=== PATIENT | female | born 1975 | race African-American/Black ===

== ENCOUNTER 2016-11-23 13:48 | Emergency (ER) | payer OTHER ==
[~2016-11-23] VITALS: Ht 157.5 cm; Wt 95.7 kg
[~2016-11-23 13:48] MED LIST: ALLERCLEAR10 MG PO; APAP500 PO; CIPROFLOXACIN500 M1 PO; CLONIDINE0.1 PO; CYCLOSPORINE25 M1 PO; DEX4 GLUCOSE1 EACH PO; ESTROGEL50 GM TD; FLAGYL500 MG PO; FLEXERIL PO; GLUCOSE 40% GEL15 GM PO; HYDROCHLOROTHIA25 M2 PO; HYDROCODONE-AP1 EAC6 PO; IBUPROFEN 600600 M1 PO; LANOLIN56 GM TOP; LORTAB 5 MG/5001 TA1 PO; MOBIC7.5 MG PO; NABUMETONE 500500 M1 PO; NAPROSYN500 MG PO; NOHOMEMEDICATIONS; NORCO 5-325 TA1 EACH PO; PREDNISONE 10 M10 MG PO; ROBAXIN 750 MG750 M1 PO; VENLAFAXINE H37.5 MG PO; VITAMIN D1000 UNI1 PO; ZANTAC 150MG T150 M1; ZOFRAN ODT4 MG PO
[2016-11-23 13:49] VITALS: BP 139/92
[2016-11-23] MEDS ORDERED: LISINOPRIL10 MG PO (14:01)
[2016-11-23] MEDS ORDERED: ESTROVEN 155 M155 MG PO (14:02)
[2016-11-23] MEDS ORDERED: TUSSIONEX PENN473 ML PO (14:19)
== END 2016-11-23 14:44 | disposition home or self-care (01) ==
LOC: ER 13:48
DX: J02.9 Acute pharyngitis, unspecified (principal); J04.0 Acute laryngitis; Z90.710 Acquired absence of both cervix and uterus; Z91.040 Latex allergy status

== ENCOUNTER → 2018-12-21 | Outpatient (CLI) | payer OTHER ==
[~2018-12-21] MED LIST changes: +AMOXICILLIN500 M1 PO; +BIOTIN10000 MC1 PO; +ESTRADIOL 1 MG T1 M1 PO; +ESTROVEN 155 M155 MG PO; +LISINOPRIL10 MG PO; +TRAMADOL 50 MG50 MG PO; +TUSSIONEX PENN473 ML PO
== END ==
LOC: RAD 16:12
DX: M47.816 Spondylosis without myelopathy or radiculopathy, lumbar region (principal); M25.551 Pain in right hip

== ENCOUNTER → 2019-02-21 | Outpatient (CLI) | payer OTHER | LOC: MRI 10:55 | DX: M54.16 Radiculopathy, lumbar region (principal) ==

== ENCOUNTER 2019-10-29 23:37 | Emergency (ER) | payer OTHER ==
[~2019-10-29] VITALS: Ht 157.5 cm; Wt 85.3 kg
[2019-10-29] MEDS ORDERED: LIPITOR 20 MG T20 M1 PO (23:45)
[2019-10-29] MEDS ORDERED: HYDROCHLOROTHIA25 M2 PO (23:46)
[2019-10-30 00:33] LABS: ABSOLUTE NEUTROPHILS 4.7 thou/uL (1.4-8.2); BASOPHILS 0.4 % (0.0-2.0); EOSINOPHILS 2.1 % (0.0-3.0); HEMATOCRIT 36.6 % (37.0-47.0); HEMOGLOBIN 12.2 gm/dL (12.0-15.0); LYMPHOCYTES 34.4 % (24.0-44.0); MCH 31.9 pg (26.0-34.0); MCHC 33.4 g/dL (28.0-37.0); MCV 95.4 fL (80.0-100.0); MONOCYTES 9.4 % (1.0-8.0); PLATELET COUNT 310 thou/uL (150-400); POLYS 53.7 % (36.0-66.0); RBC 3.84 mil/uL (4.20-5.00); RDW 14.8 % (10.5-14.5); WBC 8.7 thou/uL (4.0-11.0)
[2019-10-30 00:44] LABS: CALCIUM 8.5 mg/dL (8.5-10.1); CREATININE 0.7 mg/dL (0.6-1.0); POTASSIUM 3.7 mmol/L (3.5-5.1)
[2019-10-30 00:50] LABS: ALBUMIN 3.2 g/dL (3.4-5.0); TOTAL BILIRUBIN 0.6 mg/dL (<0.1-1.0); TOTAL PROTEIN 6.4 g/dL (6.4-8.2)
[2019-10-30 00:56] VITALS: BP 138/97
--- NOTE | 2019-10-30 11:31 | EKG ---
[facility] [place] [address] ELECTROCARDIOGRAM REPORT Name: JOAQUIM ANSARI Room #: DEP [facility]#: [id number] Admission: 10/29/19 Attend Phys: Discharge: 10/30/19 Date of : 75 Report #: [id number] THIS REPORT FOR: cc: Agustin Rubio Steven F. DO Couchonnal, Luis F. 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
== END 2019-10-30 01:10 | disposition home or self-care (01) ==
LOC: ER 23:37
PROVIDERS: Emergency Medicine
DX: R20.2 Paresthesia of skin (principal); R20.0 Anesthesia of skin; I10 Essential (primary) hypertension; E78.5 Hyperlipidemia, unspecified; Z79.899 Other long term (current) drug therapy; Z91.040 Latex allergy status

== ENCOUNTER → 2020-02-21 | Outpatient (CLI) | payer OTHER ==
[~2020-02-21] MED LIST changes: +LIPITOR 20 MG T20 M1 PO
== END ==
LOC: LAB 13:31
PROVIDERS: ATTEND Neuromusculoskeletal Medicine & OMM
DX: R50.9 Fever, unspecified (principal); R51 Headache; J02.9 Acute pharyngitis, unspecified; Z20.828 Contact with and (suspected) exposure to other viral communicable diseases

== ENCOUNTER → 2020-06-15 | Outpatient (CLI) | payer OTHER | LOC: LAB 11:22 | PROVIDERS: ATTEND Nurse Practitioner | DX: Z20.828 Contact with and (suspected) exposure to other viral communicable diseases (principal) ==

== ENCOUNTER → 2020-08-14 | Outpatient (CLI) | payer OTHER | LOC: SJCVCIMAG 07:48 | PROVIDERS: ATTEND Internal Medicine | DX: I08.8 Other rheumatic multiple valve diseases (principal); I11.9 Hypertensive heart disease without heart failure; I45.10 Unspecified right bundle-branch block ==

== ENCOUNTER → 2021-01-02 | Outpatient (CLI) | payer OTHER | LOC: CAT 07:43 | PROVIDERS: ATTEND Neuromusculoskeletal Medicine & OMM | DX: Z13.6 Encounter for screening for cardiovascular disorders (principal); E78.00 Pure hypercholesterolemia, unspecified; I25.10 Atherosclerotic heart disease of native coronary artery without angina pectoris ==

== ENCOUNTER → 2021-01-02 | Outpatient (CLI) | payer OTHER | LOC: BC 08:21 | PROVIDERS: ATTEND Neuromusculoskeletal Medicine & OMM | DX: Z12.31 Encounter for screening mammogram for malignant neoplasm of breast (principal) ==

== ENCOUNTER → 2021-01-25 | Outpatient (CLI) | payer OTHER ==
[~2021-01-25] MED LIST changes: +ATORVASTATIN CA20 MG PO; +ENALAPRIL-HCTZ1 EACH PO; +VITAMIN D350 MC3 PO
[2021-01-25 07:12] VITALS: BP 143/94
[2021-01-25 07:39] LABS: CALCIUM 9.3 mg/dL (8.5-10.1); CREATININE 0.9 mg/dL (0.6-1.0); POTASSIUM 3.8 mmol/L (3.5-5.1)
--- NOTE | 2021-01-28 09:21 | O ---
[facility] [place] [address] OPERATIVE REPORT Name: JOAQUIM ANSARI Room #: REG ALIA [facility]#: [id number] Admission: 01/25/21 Attend Phys: Soham Long MD Discharge: Date of : 75 Report #: [id number] THIS REPORT FOR: cc: Agsutin Rubio,Agustin Bo,Soham Cho MD ~ DATE OF SERVICE: 01/25/2021 PROCEDURE PERFORMED: Screening colonoscopy. PREPROCEDURAL DIAGNOSES: 1. Screening colonoscopy. 2. Inguinal hernia. POSTPROCEDURAL DIAGNOSES: 1. Screening colonoscopy. 2. Inguinal hernia. SURGEON: Soham Long MD HAZARDOUS WASTE MANAGEMENT SPECIALIST: None. ANESTHETIC: Monitored anesthesia care. ESTIMATED BLOOD LOSS: None. SPECIMENS: None. FINDINGS: Normal colon from appendiceal orifice to the anus. INDICATIONS FOR PROCEDURE: The patient is a 45-year-old female, preparing to undergo hernia repair. She is in need of a screening colonoscopy. The risks, benefits and alternatives of the procedure were discussed with the patient. The risks discussed included but were not limited to the risk of bleeding, infection, perforation, aspiration, hypoxia, cardiopulmonary events, anesthesia and , need for surgery, need for hospitalization. The patient had the opportunity to ask questions. All questions were answered to the best of my ability at the end of the discussion, she wished to proceed. DESCRIPTION OF PROCEDURE: After informed consent was obtained, the patient was taken to the operating room and placed in the supine position. Monitored anesthesia care was induced. The patient was transitioned to the left lateral decubitus position. A ANGELITO was performed and a lubricated colonoscope was inserted into the anus. The colonoscope was then advanced around the colon and into the cecum under direct visualization. The cecum was identified by the cecal strap and the appendiceal orifice. The colonoscope was then meticulously [address] [address] OPERATIVE REPORT Name: JOAQUIM ANSARI Room #: REG ALIA [facility]#: [id number] Admission: 01/25/21 Attend Phys: Soham Long MD Discharge: Date of : 75 Report #: [id number] withdrawn while viewing the circumference of the colon entirely. The patient's entire mucosa was normal. There were no inflammatory findings. There were no neoplastic findings. There were no diverticular findings and there were no vascular abnormalities. The colonoscope was withdrawn all the way to the patient's rectum, and the anal canal was inspected on the way out as well. Before removing the colonoscope, the gas was evacuated as much as possible. The patient tolerated the procedure well. There were no adverse events throughout the course of the procedure. She was transferred to the PACU in stable condition. <ELECTRONICALLY SIGNED> By: Soham Long MD 01/28/21 0921 [id number] [id number] Soham Long MD /selvin
== END | disposition home or self-care (01) ==
LOC: GI 06:44 → EDSTATUS 07:00
PROVIDERS: Anesthesiology; ATTEND Surgery
DX: Z12.11 Encounter for screening for malignant neoplasm of colon (principal); K40.90 Unilateral inguinal hernia, without obstruction or gangrene, not specified as recurrent; I10 Essential (primary) hypertension; Z98.890 Other specified postprocedural states; Z79.899 Other long term (current) drug therapy; Z91.040 Latex allergy status
CPT/HCPCS: 50010; 50101; 62110; 62900; 70005

== ENCOUNTER → 2021-01-31 | Outpatient (CLI) | payer OTHER | LOC: MRI 08:04 | PROVIDERS: ATTEND Neuromusculoskeletal Medicine & OMM | DX: I67.82 Cerebral ischemia (principal); R90.82 White matter disease, unspecified; H53.9 Unspecified visual disturbance; G93.89 Other specified disorders of brain ==

== ENCOUNTER 2021-02-07 17:22 | Emergency (ER) | payer OTHER ==
[2021-02-07 18:39] VITALS: BP 153/96
== END 2021-02-07 19:00 | disposition left against medical advice (07) ==
LOC: ER 17:22
DX: Z20.822 Contact with and (suspected) exposure to COVID-19 (principal); Z53.21 Procedure and treatment not carried out due to patient leaving prior to being seen by health care provider

== ENCOUNTER 2021-04-28 18:36 | Emergency (ER) | payer OTHER ==
[~2021-04-28] VITALS: Ht 157.5 cm; Wt 94.3 kg
[2021-04-28] MEDS ORDERED: CEPHALEXIN500 MG PO (19:01)
[2021-04-28 19:33] VITALS: BP 136/96
== END 2021-04-28 19:34 | disposition home or self-care (01) ==
LOC: ER 18:36
DX: T24.202A Burn of second degree of unspecified site of left lower limb, except ankle and foot, initial encounter (principal); T31.0 Burns involving less than 10% of body surface; F41.9 Anxiety disorder, unspecified; I10 Essential (primary) hypertension; E78.00 Pure hypercholesterolemia, unspecified; Z79.899 Other long term (current) drug therapy; Z90.711 Acquired absence of uterus with remaining cervical stump; Z91.040 Latex allergy status